=== PATIENT | female | born 1945 | race Caucasian/White ===

== ENCOUNTER 2016-10-25 19:59 | Inpatient (IN) | payer MEDICARE, OTHER ==
--- NOTE | 2016-10-25 20:34 | ED Physician Documentation ---
History of Present Illness - Stated complaint Stated Complaint: COUGH/DIZZINESS - Chief complaint Chief Complaint: General - History obtained from History obtained from: Patient - History of Present Illness Timing: How many days ago (2-3) Pain level now: 4 (chest pain, but distinctly related to coughing (only has pain when she coughs, and rapidly resolves)) Radiates to: no radiation Improved by: rest Worsened by: exertion - Additonal information Additional information: c/o 2-3 days of rhinorhea, dyspnea, productive cough. she has dizziness and chest pain when she coughs (and only when she coughs, resolves rapidly). taking dayquil and nyquil without relief of symptoms Review of Systems Constitutional: reports: Chills, Sweats. denies: Fever (did not take temperature at home) Eyes: reports: Reviewed and negative Ears: reports: Reviewed and negative Nose: reports: Reviewed and negative Throat: reports: Reviewed and negative Cardiac: reports: Chest pain / pressure (with coughing). denies: Palpitations, Pedal edema, Calf pain Respiratory: reports: Dyspnea, Cough GI: reports: Reviewed and negative : denies: Dysuria Skin: reports: Reviewed and negative Musculoskeletal: reports: Reviewed and negative Neurologic: reports: Generalized weakness. denies: Focal weakness, Numbness PD PAST MEDICAL HISTORY - Past Medical History Cardiovascular: None Respiratory: CPAP use Neuro: None Endocrine/Autoimmune: None GI: None INJECTION PRESS OPERATOR: None : None HEENT: None Psych: None Musculoskeletal: None Derm: None - Past Surgical History Past Surgical History: Yes General: Appendectomy /INJECTION PRESS OPERATOR: section HEENT: Tonsil/Adenoidectomy - Present Medications Home Medications: Ambulatory Orders Medication Instructions Recorded Confirmed Ergocalciferol [Vitamin D2] 50,000 unit PO ONCE 10/17/15 10/17/15 Ferrous Sulfate [Iron Supplement] 325 mg PO 10/17/15 Multivitamin [Multivitamins] 1 each PO DAILY 10/17/15 10/17/15 - Allergies Allergies/Adverse Reactions: Allergies Allergy/AdvReac Type Severity Reaction Status Date / Time No Known Drug Allergies Allergy Verified 10/25/16 20:07 - Social History Does the pt smoke?: No Smoking Status: Never smoker Does the pt drink ETOH?: No Does the pt have substance abuse?: No - Immunizations Immunizations are current?: Yes - POLST Patient has POLST: No PD ED PE NORMAL - Vitals Vital signs reviewed: Yes - General General: Alert and oriented X 3, No acute distress, Well developed/nourished - HEENT HEENT: Moist mucous membranes - Neck Neck: Supple, no meningeal sign - Cardiac Cardiac: RRR, Other (2/6 FIGUEROA cardiac base) - Respiratory Respiratory: No respiratory distress, Other (decreased breath sounds left base without wheezes, rales, rhonchi) - Abdomen Abdomen: Soft, Non tender - Derm Derm: Normal color, Warm and dry - Extremities Extremities: No edema - Neuro Neuro: Alert and oriented X 3 Results - Vitals Vitals: Vital Signs - 24 hr 10/25/16 10/25/16 20:03 21:55 Temperature 37.3 C Heart Rate 96 87 Respiratory 20 20 Rate Blood Pressure 140/69 H 126/57 L O2 Saturation 93 92 Oxygen O2 Source Nasal cannula Oxygen Flow Rate 3 - Labs Labs: Laboratory Tests 10/25/16 10/25/16 10/25/16 20:57 20:57 20:57 WBC 9.3 RBC 2.83 L Hgb 9.9 L Hct 29.1 L MCV 102.7 H MCH 34.9 H MCHC 33.9 RDW 13.2 Plt Count 163 MPV 9.3 Neut # 7.3 H Lymph # 0.9 L [place] # 0.9 Eos # 0.0 Baso # 0.1 Absolute Nucleated RBC 0.00 Nucleated RBCs 0.0 Sodium 134 L Potassium 4.5 Chloride 104 Carbon Dioxide 24 Anion Gap 6.0 BUN 18 Creatinine 0.9 Estimated GFR (MDRD) 62 L Glucose 127 H Calcium 8.8 Troponin I < 0.04 - Rads (name of study) chest xray Radiology: Prelim report reviewed, See rad report PD MEDICAL DECISION MAKING - ED course Complexity details: reviewed results, re-evaluated patient, considered differential, d/w patient, d/w family ED course: pneumonia on cxr with reassuring blood tests but persistent hypoxia (upper 80s pulse ox on room air with no pulmonary history; improves to 93-94% with supplemental oxygen, but subsequent to duoneb, she reports no subjective improvement, and when oxygen is removed, she rapidly returns to 88% pulse oxygenation with good correlating pleth). Departure - Departure Disposition: 66 [facility] DC/Xfer Clinical Impression: Pneumonia Qualifiers: Pneumonia type: due to unspecified organism Laterality: left Lung location: lower lobe of lung Qualified Code(s): J18.1 - Lobar pneumonia, unspecified organism Condition: Good Discharge Date/Time: 10/25/16 23:10
[2016-10-25] MEDS ORDERED: IPRATROPIUM/ALBUTEROL 3 ML NEB INH STA (20:49)
[2016-10-25 21:04] LABS: BASOPHILS # (AUTO) 0.1 10^3/uL (0.0-0.1); BASOPHILS % (AUTO) 0.5 %; EOSINOPHILS % (AUTO) 0.2 %; HCT - HEMATOCRIT 29.1 % (37.0-47.0); HGB - HEMOGLOBIN 9.9 g/dL (12.0-16.0); LYMPHOCYTES # (AUTO) 0.9 10^3/uL (1.5-3.5); MEAN CORPUSCULAR HEMOGLOBIN 34.9 pg (27.0-31.0); MEAN CORPUSCULAR HGB CONC 33.9 g/dL (32.0-36.0); MEAN CORPUSCULAR VOLUME 102.7 fL (81.0-99.0); MEAN PLATELET VOLUME 9.3 fL (7.9-10.8); MONOCYTES # (AUTO) 0.9 10^3/uL (0.0-1.0); MONOCYTES % (AUTO) 9.9 %; NEUTROPHILS # (AUTO) 7.3 10^3/uL (1.5-6.6); NEUTROPHILS % (AUTO) 79.4 %; RED BLOOD COUNT 2.83 10^6/uL (4.20-5.40); RED CELL DISTRIBUTION WIDTH 13.2 % (12.0-15.0); UNCORRECTED WHITE BLOOD COUNT 9.3 x10^3/uL; WHITE BLOOD COUNT 9.3 x10^3/uL (4.8-10.8)
[2016-10-25 21:13] LABS: CALCIUM 8.8 mg/dL (8.5-10.3); CREATININE 0.9 mg/dL (0.4-1.0); POTASSIUM 4.5 mmol/L (3.5-5.0)
--- NOTE | 2016-10-25 21:23 | XRAY Preliminary Report ---
Exam: XR Chest 2 View PA/LAT IMPRESSION: Left lower lobe airspace disease. [facility] SITE ID: [id number]
--- NOTE | 2016-10-25 21:26 | XRAY Report ---
EXAM: CHEST RADIOGRAPHY EXAM DATE: 10/25/2016 09:11 PM. CLINICAL HISTORY: Cough, hypoxia. COMPARISON: None. TECHNIQUE: 2 views. FINDINGS: Lungs/Pleura: Focal opacity in the left lung base. No pleural effusion or pneumothorax. Mediastinum: Heart and mediastinal contours are unremarkable. Other: None. IMPRESSION: Left lower lobe airspace disease. [facility] Referring Provider Line: [phone] SITE ID: [id number]
[2016-10-25] MEDS ORDERED: IPRATROPIUM/ALBUTEROL 3 ML NEB INH ONE (21:58)
[2016-10-25] MEDS ORDERED: cefTRIAXone 1 GM VIAL ONE (22:43)
[2016-10-25] MEDS ORDERED: cefTRIAXone 1 GM in SODIUM CHLORIDE 0.9% MINIBAG 100 ML IV STA (22:43)
[2016-10-25] MEDS ORDERED: AZITHROMYCIN INJ 500 MG in SODIUM CHLORIDE 0.9% 250 ML IV STA (22:43)
[2016-10-25] MEDS ORDERED: SODIUM CHLORIDE FLUSH 0.9% 10 ML SYRINGE IVP PRN (22:44)
[2016-10-25] MEDS ORDERED: HYDROcod/ACETAM 5/325 MG TABLET PO PRN (22:44)
[2016-10-25] MEDS ORDERED: ZOLPIDEM 5 MG TABLET PO PRN (22:44)
[2016-10-25] MEDS ORDERED: LEVALBUTEROL 1.25 MG INH PRN (22:46)
[2016-10-25] MEDS: SODIUM CHLORIDE 0.9% 1,000 ML IV SCH (23:43)
[2016-10-26 06:26] LABS: IMMATURE RETIC FRACTION 0.49; RED BLOOD COUNT 2.68 10^6/uL (4.20-5.40)
[2016-10-26] MEDS: SODIUM CHLORIDE FLUSH 0.9% 10 ML SYRINGE IVP SCH ×3 (06:28→21:16)
[2016-10-26 06:53] LABS: FERRITIN 712.2 ng/mL (11.0-306.8)
[2016-10-26] MEDS ORDERED: CYANOCOBALAMIN 1,000 MCG/ML VIAL IM ONE (07:00)
[2016-10-26 07:13] LABS: CALCIUM 8.4 mg/dL (8.5-10.3); CREATININE 0.8 mg/dL (0.4-1.0)
[2016-10-26] MEDS ORDERED: IRON SUCROSE 200 MG in SODIUM CHLORIDE 0.9% 100ML 100 ML IV ONE (08:00)
[2016-10-26] MEDS: POLYETHYLENE GLYCOL 3350 17 GM PACKET PO SCH (08:48)
[2016-10-26] MEDS: SACCHAROMYCES BOULARDII 250 MG CAPSULE PO SCH ×2 (08:52→16:01)
[2016-10-26] MEDS: AZITHROMYCIN INJ 500 MG in SODIUM CHLORIDE 0.9% 250 ML IV SCH (10:34)
[2016-10-26] MEDS: cefTRIAXone 2 GM in SODIUM CHLORIDE 0.9% MINIBAG 100 ML IV SCH (11:05)
[2016-10-26] MEDS: guaiFENesin/DEXTROMETHORPHAN 10 ML UDC PO PRN (11:13)
--- NOTE | 2016-10-26 11:42 | HISTORY & PHYSICAL EXAMINATION ---
DATE OF ADMISSION: 10/25/2016 PRIMARY CARE PROVIDER: [facility]. ADMITTING PROVIDER: Winter Garsia MD. CHIEF COMPLAINT: Coughing spasms with weakness and shortness of breath. She is a 71-year-old female who lives in her own home with her . She is disabled because of ch ronic lumbar back pain and has intermittent lumbar epidural steroid injections. She also has kyphosis , scoliosis, osteoporosis, and vertebral compression fractures. She says that this is her main disabi lity, pain and skeletal problems. She has a lift chair at home to get up and out. Also has a wheelcha ir, and uses a chair to get up her stairs at home. She lives with her and disabled son. 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 She has had intermittent alopecia, loss of hair, of eyebrows, loss of body hair except for her "toes." She has seen numerous dermatologists in her life, and most recently the middle school combination teacher put her on dapsone. Her has chronic obstructive pulmonary disease and he recently became sick with pneumonia abou t 2 weeks ago. About a week and a half ago she noted that she started having copious runny nose, a ti ckle in the throat, and then a spasmodic cough. Over the last 3 to 4 days she has developed increasin g weakness, fatigue. She has no appetite. She has had intermittent rigors and hot and cold flashes. S he is just miserable with the fatigue and lack of energy. The coughing spasms are so severe they take her breath away. She actually was not planning on coming in to the emergency room but her vinod arias got alarmed because she is just so tired. Last night was the final straw where she slept uprigh t downstairs all night long because she could not lay down with the cough. She was seen in the emergency room by Dr. Aragon and her temperature is 37.3. With coughing spasms marcos russo desaturates into the mid 80's on room air. She is requiring 2 liters of oxygen to maintain her O2 s aturation at 93 to 94%. On physical exam she does have diminished breath sounds in the left lower lobe. Her white cell count is normal. She is anemic to 9.9 with an MCV of 102, and her imaging studies with a chest x-ray showed her to have a left lower lobe pneumonia. PAST MEDICAL HISTORY 1. Morbid obesity with subsequent gastric bypass surgery with a Debo-en-Y, has resulted in 125 pound weight loss. Complications of this have been low vitamin D absorption with subsequent severe osteopor osis. As well as vitamin malabsorption of iron and B12 with chronic anemia. 2. Kyphosis, scoliosis. 3. Mild obstructive sleep apnea for which she has been on CPAP in the past. 4. G6, P3. She has a bicornuate uterus. Has lost 3 pregnancies. The 3 full term pregnancies resulted in . 5. Unknown type of skin disease and alopecia as above. ALLERGIES: NO KNOWN DRUG ALLERGIES. MEDICATIONS: 1. Ferrous sulfate 325 mg p.o. daily. 2. Multivitamin 1 p.o. daily. 3. Vitamin D 50,000 once a week. SOCIAL HISTORY: She was born and raised in [place]. Met her when he was in the [employer] and sh e was going to [place]. They have 3 children. He is retired [employer] and they have lived all over [place] because of his job. Came back to [facility] in 1968 and have lived here permanently. She smok ed starting at the age of 18 and quit around 1974 and was up to 1-1/2 packs per day. She has no histo ry of alcohol abuse and is adamant about no recreational substance abuse. She currently lives in her own home with her and her disabled son. He had developmental delay since . He works at [employer] doing light maintenance and yard work. is retired [employer]. FAMILY HISTORY: Mom around 54 or 55 of multiple strokes. Dad in his mid 70's of lung cancer . Two brothers have diabetes. Sister is healthy. Of her 3 children the 1 son is developmentally delay ed. Her other 2 sons are healthy. One son lives in [place] and the other one lives in [facility]. REVIEW OF SYSTEMS: She has had recent change in appetite, positive complaints of hot flashes and nigh t sweats, but no unexpected weight changes. ENT: Denies glaucoma or cataracts. She has no problems with swallowing. No problems with vision or de afness. PULMONARY: Usually has absolutely no lung problems. The cough is new, the shortness of breath and swe ats are new. CARDIAC: Denies orthopnea, edema, palpitations. She is having intermittent chest pain that seems to b e musculoskeletal and associated with coughing. It goes away when the coughing goes away. It is bilat eral, along the costochondral junctions. GI: Has no problems with diarrhea or abdominal pain. Noticeable lack of appetite and an already bad a ppetite in the past week. : Denies urgency, frequency, dysuria, hematuria, flank pain. MUSCULO: Positive as above for chronic back pain. No new complaints. SKIN: Flat, round, discoid lesions that are nonpalpable and more of a discoloration of her skin that has been plaguing her since the age of 18. Alopecia that is partial. Partial loss of eyebrows, comple te loss of arm hair, leg hair, body hair except for her toes. PSYCH: Denies depression, anxiety, hallucinations. [employer] SALES REPRESENTATIVE: Denies syncope, seizures, loss of consciousness, memory loss. REVIEW OF SYSTEMS: On review of systems she is seen in the emergency room with her at the bed side. Temperature is 37.3, pulse is 93, blood pressure 126/54, respirations 18, 93% on 3 liters. She has re ceived a nebulizer treatment in the emergency department and ceftriaxone and Zithromax have been orde red, but not given yet. She is an alert, oriented, but noticeably fatigued, moderately overweight mid dle aged female who looks older than her stated age. She is comfortable at rest, but with talking to me starts gasping for air and getting mildly tachypneic. HEAD AND NECK EXAM: Shows her to have generalized intermittent alopecia, loss of lateral eyebrows. Pu pils are reactive. Sclerae nonicteric. Oral mucosa pale, dry. No facial asymmetry and speech is myrna l and intact. Neck is supple without goiter, adenopathy or bruits. LUNGS: Lungs have coarse tubular breath sounds in the left mid and left lower lung rothman, but no cras ckles, no wheezing. There is increased tachypnea when she starts talking to me. But no use of accesso ry muscles. PMI normally placed with an occasional tachycardic regular rate and rhythm without murmur s, rubs, or gallops. ABDOMEN: Obese, soft, nontender, with evidence of her old Debo en Y bypass surgery. Hypoactive bowel sounds, nontender, no rebound or guarding. EXTREMITIES AND SKIN: Quite hot to touch. This is in spite of no temperature. Forehead is cool, but h er arms, trunk, and legs are quite, quite warm. Also covering her forearms and distal legs are flat, hypermelanotic areas reddish, pinkish color. Nonblanching and nonpalpable. Nonflaking. The joints in and of themselves have no effusions at the shoulders, elbows, wrist, knees, ankles, or fingers or toe s. NEUROLOGIC: She is alert and oriented to person, place, and time. She is really weak. It is more of a generalized weakness and she says she is just so tired. But no focal deficits and she can use her nicholas nds to gesticulate, make herself comfortable in the bed, she can lift her legs off the bed for me. No tremors. White cell count is 9.3, hemoglobin 9.9, hematocrit 29, MCV 102. Sodium 134, potassium 4.5, normal an ion gap, BUN 18, creatinine 0.9, lactic acid 1.3, troponin less than 0.04. EKG: A sinus rhythm. Normal axis, normal R-wave progression, no acute STT wave changes. Chest x-ray has a left lower lobe infiltrate. ASSESSMENT AND PLAN: 1. Community acquired pneumonia of the left lower lobe in this middle aged female. Argument to be mad e for mild immunocompromised state with the use of dapsone. However, she is a remote tobacco smoker. She has not been in an institution or hospitalized recently or treated with antibiotics. As such, she will be placed on ceftriaxone and Rocephin. Blood cultures will be done, as well as sputum cultures if they can be induced. Plan is for inpatient stay for greater than 2 midnights. 2. Hypoxia. I carefully explained to her that she may need oxygen in the outpatient setting. But it i s not a permanent use. 3. Macrocytic anemia in a patient who had gastric bypass surgery. Again, most likely cause is malabso rption of both iron and B12. She does not list B12 sublingual or B12 injections on her medication lis t. Will check B12, ferritin, iron, zinc levels. If these are low, will make sure she needs to be supp lemented in the outpatient setting. 4. Possible discoid lupus diagnosis. The patient is unsure. Dapsone is not listed on the medication l ist per the emergency room and I obtained this from her history. At this time hold off on the dapsone . 5. FULL CODE STATUS. IN THE EVENT OF A CARDIOPULMONARY ARREST SHE DOES WANT TO BE RESUSCITATED AND BE INTUBATED. HOWEVER, IF THE EFFORT LOOKS LIKE IT IS GOING TO BE FUTILE, SHE WANTS US TO CALL IT AND S HE DOES NOT WANT TO REMAIN ON LIFE SUPPORT. 6. DVT prophylaxis will be Lovenox. JOB #: [id number] EXT JOB #:[id number]
[2016-10-26] MEDS: ACETAMINOPHEN 325 MG TABLET PO PRN ×2 (13:06→16:01)
--- NOTE | 2016-10-26 14:26 | PROVIDER PROGRESS NOTE ---
Subjective - Prog Note Date Prog Note Date: 10/26/16 Prog Note Time: 14:24 - Subjective Pt reports feeling: Improved Subjective: Pateint reports she is still feeling ill but overall achy and still has some sweats/chills. Was up to chair with breakfast, exercising her arms/legs. She denies nausea. Her SOB persists, worse when havign a coughing spell. She denies chest pain. Has strong coarse hacky cough, some sputum. Reports mobility at baseline. Current Medications - Current Medications Current Medications: Active Medications Acetaminophen (Tylenol) 650 mg PO Q4HR PRN PRN Reason: Pain 1 to 4 Last Admin: 10/26/16 13:06 Dose: 650 mg Acetaminophen/Hydrocodone Bitart ([place] 5/325) 1 tab PO Q4HR PRN PRN Reason: Pain 5 to 7 Guaifenesin (Robitussin Dm) 10 ml PO Q6HR PRN PRN Reason: Cough Last Admin: 10/26/16 11:13 Dose: 10 ml Sodium Chloride (Normal Saline 0.9%) 1,000 mls @ 100 mls/hr IV .Q10H [facility] Stop: 10/26/16 18:59 Last Admin: 10/25/16 23:43 Dose: 100 mls/hr Azithromycin 500 mg/ Sodium (Chloride) 250 mls @ 250 mls/hr IV DAILY [facility] Last Admin: 10/26/16 10:34 Dose: 250 mls/hr Ceftriaxone Sodium 2 gm/ (Sodium Chloride) 100 mls @ 200 mls/hr IV Q24H [facility] Last Admin: 10/26/16 11:05 Dose: 200 mls/hr Levalbuterol HCl (Xopenex) 1.25 mg INH Q4HR PRN PRN Reason: Wheezing Polyethylene Glycol (Miralax) 17 gm PO DAILY [facility] Last Admin: 10/26/16 08:48 Dose: Not Given Saccharomyces Boulardii (Florastor) 250 mg PO BIDWM [facility] Last Admin: 10/26/16 08:52 Dose: 250 mg Sodium Chloride (Normal Saline Flush 0.9%) 10 ml IVP PRN PRN PRN Reason: NEEDED PER PROVIDER ORDERS Sodium Chloride (Normal Saline Flush 0.9%) 10 ml IVP Q8HR [facility] Last Admin: 10/26/16 14:06 Dose: Not Given Zolpidem Tartrate (Ambien) 5 mg PO QPM PRN PRN Reason: Insomnia Ferrous Sulfate [Iron Supplement] 325 mg PO Q7D 10/17/15 Calcium Carbonate [Tums (Calcium Carbonate 500mg)] 500 mg PO DAILY 10/26/16 Cholecalciferol (Vitamin D3) [Vitamin D] 2,000 unit PO DAILY 10/26/16 Cyanocobalamin (Vitamin B-12) [Vitamin B-12 (500 mcg sublingual)] 250 mcg PO DAILY 10/26/16 Dapsone 50 mg PO BID 10/26/16 Pnv95/Ferrous Fumarate/FA [ Tablet] 1 each PO DAILY 10/26/16 Objective - Vital Signs/Intake & Output Reviewed Vital Signs: Yes Vital Signs: Vital Signs x48h Temp Pulse Pulse Resp BP Pulse Ox 10/26/16 13:32 37.5 C 85 19 149/70 H 93 10/26/16 08:10 102 H 20 Intake & Output: Intake & Output 10/23/16 10/24/16 10/25/16 10/26/16 23:59 23:59 23:59 23:59 Intake Total 1618 Balance 1618 - Objective General Appearance: positive: No acute distress, Alert Eyes Bilateral: positive: Normal inspection, PERRL ENT: positive: No signs of dehydration Neck: positive: No JVD Respiratory: positive: Chest non-tender, No respiratory distress, Breath sounds nml (coarse LLL posterior expiratory BS and coarse cough,diminished bases. INcreased rate with exertion or conversation.) Cardiovascular: positive: Regular rate & rhythm, Tachycardia Peripheral Pulses: 2+ Radial (R), 2+ Radial (L) Abdomen: positive: Non-tender, Nml bowel sounds (hypoactive), No distention Back: positive: Nml inspection Skin: positive: Other (Pale with evidence of discoid lupus with annular plaques that are only slightly darker pigmenation, no erythem aor scaling. Skin hot and clammy on the back.) Extremities: positive: Non-tender, Pedal edema (+2). negative: Calf tenderness , Joint swelling Neurologic/Psychiatric: positive: Oriented x3, Weakness (in the LEs but she is able to sit up in bed independently) - Lab Results Fish Bones: 10/25/16 20:57 10/26/16 05:55 Other Labs: Lab Results x24hrs 10/26/16 10/26/16 10/26/16 Range/Units 05:55 05:55 05:55 RBC (4.20-5.40) 10^6/uL Reticulocyte % (Auto) (0.5-2.3) % Absolute Retic (0.020-0.110) 10^6/uL Sodium (135-145) mmol/L Potassium (3.5-5.0) mmol/L Chloride (101-111) mmol/L Carbon Dioxide (21-32) mmol/L Anion Gap (6-13) BUN (6-20) mg/dL Creatinine (0.4-1.0) mg/dL Estimated GFR (MDRD) (>89) Glucose (70-100) mg/dL Lactic Acid (0.5-2.2) mmol/L Calcium (8.5-10.3) mg/dL Iron (28-170) ug/dL TIBC (250-450) ug/dL % Saturation (20-50) % Transferrin (192-382) mg/dL Ferritin 712.2 H (11.0-306.8) ng/mL Lactate Dehydrogenase 161 (91-225) IU/L Vitamin B12 645 (180-914) pg/mL Folate 23.24 (5.90 - >24.8) ng/mL 10/26/16 10/26/16 10/25/16 Range/Units 05:55 05:55 22:49 RBC 2.68 L (4.20-5.40) 10^6/uL Reticulocyte % (Auto) 3.22 H (0.5-2.3) % Absolute Retic 0.086 (0.020-0.110) 10^6/uL Sodium 135 (135-145) mmol/L Potassium 4.0 (3.5-5.0) mmol/L Chloride 105 (101-111) mmol/L Carbon Dioxide 23 (21-32) mmol/L Anion Gap 7.0 (6-13) BUN 12 (6-20) mg/dL Creatinine 0.8 (0.4-1.0) mg/dL Estimated GFR (MDRD) 71 L (>89) Glucose 118 H (70-100) mg/dL Lactic Acid 1.3 (0.5-2.2) mmol/L Calcium 8.4 L (8.5-10.3) mg/dL Iron 8 L (28-170) ug/dL TIBC 168 L (250-450) ug/dL % Saturation 5 L (20-50) % Transferrin 120 L (192-382) mg/dL Ferritin (11.0-306.8) ng/mL Lactate Dehydrogenase (91-225) IU/L Vitamin B12 (180-914) pg/mL Folate (5.90 - >24.8) ng/mL Assessment/Plan - Problem List (1) CAP (community acquired pneumonia) Impression: Possibly mild immunocompromised state from dapsone. Recent exposure with sick contacts at family gathering. No hx of underlying lung disease. +cough, congetsion, SOB, fatigue and poor appetite. CXR with LLL infiltrate and coarse breath sounds. -Rocephin and Azithromycin -Xopenex prn -Robitussin prn -Follow-up BC results -Follow-up sputum cx results (2) Hypoxia Impression: No hx of hypoxia or underlying lung disease. Etiology: CAP. mid 80s on RA on arrival. Now 93% on 3l nc. -Duonebs rtQID prn -Xopenex neb prn -Supplemental O2 prn (3) Macrocytic anemia Impression: Hx of gastric bypass which could cause malabsorption. Noted to have very low iron but labs reveal a more anemia of chronic disease type pattern. B12 and folate normal. Given B12 IM injection x1. Given iron infusion x1. Retic % high but absolute retic normal - will work up for hemolytic anemia -LDH, Haptoglobin, and Bilirubin -RD eval and treat -Increase PO iron to daily as outpatient, if no improvement may benefit from outpt iron infusions on regular basis (4) Chronic pain Impression: Hx of chronic pain due to scoliosis and kyphosis. No opioids at home. -Encourage activity while here to prevent stiffness -Ice or kpad as needed
[2016-10-26] MEDS: IPRATROPIUM/ALBUTEROL 3 ML NEB INH PRN ×2 (15:37→19:40)
[2016-10-26 16:01] LABS: BILIRUBIN,DIRECT 0.2 mg/dL (0.1-0.5); BILIRUBIN,INDIRECT 0.8 mg/dL
[2016-10-26] MEDS: SODIUM CHLORIDE 0.9% 1,000 ML IV SCH (20:05)
[2016-10-26] MEDS: CALCIUM CARBONATE CHEW 500 MG TABLET PO PRN (21:56)
[2016-10-27] MEDS: BENZOCAINE/MENTHOL LOZENGE MM PRN ×2 (00:02→02:42)
[2016-10-27] MEDS: guaiFENesin/DEXTROMETHORPHAN 10 ML UDC PO PRN (00:02)
[2016-10-27] MEDS: CALCIUM CARBONATE CHEW 500 MG TABLET PO PRN ×4 (02:42→20:11)
[2016-10-27 05:56] LABS: CALCIUM 8.7 mg/dL (8.5-10.3); CREATININE 0.7 mg/dL (0.4-1.0); POTASSIUM 4.1 mmol/L (3.5-5.0)
[2016-10-27] MEDS: SODIUM CHLORIDE FLUSH 0.9% 10 ML SYRINGE IVP SCH ×3 (06:44→20:07)
--- NOTE | 2016-10-27 08:31 | PROVIDER PROGRESS NOTE ---
Assessment/Plan - Problem List (1) CAP (community acquired pneumonia) Assessment/Plan: acute. continue with rocephin and azithromycin. stop if sputum culture has no growth. patient remains afebrile. continue with RT treatments and monitoring of pulse oxygenation. monitor WBC (2) Intestinal malabsorption following gastrectomy Assessment/Plan: acute on chronic. continue to monitor electrolytes. Banana bad given IV since patient is having a hard time with absorption. will get a vitamin D level, B12, lipid and following CBC. magnesium at 1.9 (3) Macrocytic anemia Assessment/Plan: acute on chronic with iron deficiency secondary to gastric bypass surgery with malabsorption - continue to monitor CBC. add ferrous sulfate to daily meds. venofer IV given. B12 WNL. monitor for bleeding. gluten free diet (4) Chronic low back pain with bilateral sciatica Qualifiers: Qualified Code(s): M54.42 - Lumbago with sciatica, left side; M54.41 - Lumbago with sciatica, right side; G89.29 - Other chronic pain Assessment/Plan: chronic. continue to encourage ambulation and reduce inflammation. continue with hydrocodone as needed for pain and tylenol (5) Obesity (BMI 30.0-34.9) Assessment/Plan: chronic, patient to continue to eat a gluten free gastric bypass diet. encourage ambulation and monitor caloric intake - Current Meds Current Meds: Current Medications Generic Name Dose Route Start Last Admin Trade Name Freq PRN Reason Stop Dose Admin Acetaminophen 650 mg 10/25/16 22:44 10/26/16 16:01 Tylenol PO 650 mg Q4HR PRN Administration Pain 1 to 4 Albuterol/Ipratropium 3 ml 10/26/16 14:39 10/26/16 19:40 Duoneb INH 3 ml RTQID PRN Administration Shortness of Air/Wheezing Calcium Carbonate/Glycine 500 mg 10/26/16 21:39 10/27/16 06:44 Tums PO 500 mg PRN PRN Administration Heartburn Guaifenesin 10 ml 10/26/16 11:02 10/27/16 00:02 Robitussin Dm PO 10 ml Q6HR PRN Administration Cough Azithromycin 500 mg/ Sodium 250 mls @ 250 mls/hr 10/26/16 09:00 10/26/16 10:34 Chloride IV 250 mls/hr DAILY ANGELI Administration Ceftriaxone Sodium 2 gm/ 100 mls @ 200 mls/hr 10/26/16 10:00 10/26/16 11:05 Sodium Chloride IV 200 mls/hr Q24H ANGELI Administration Polyethylene Glycol 17 gm 10/26/16 09:00 10/26/16 08:48 Miralax PO Not Given DAILY ANGELI Saccharomyces Boulardii 250 mg 10/26/16 08:00 10/26/16 16:01 Florastor PO 250 mg BIDWM ANGELI Administration Sodium Chloride 10 ml 10/26/16 06:00 10/27/16 06:44 Normal Saline Flush 0.9% IVP 10 ml Q8HR ANGELI Administration Throat Lozenges 1 lozenge 10/26/16 23:38 10/27/16 02:42 Cepacol MM 1 lozenge Q2HR PRN Administration Throat pain - Lab Result Lab results reviewed: Yes Fish Bone Diagrams: 10/28/16 07:40 10/28/16 06:30 Other Lab Results: Abnormal Lab Results 10/25/16 10/25/16 10/26/16 20:57 20:57 05:55 RBC 2.83 10^6/uL L 10^6/uL (4.20-5.40) Hgb 9.9 g/dL L g/dL (12.0-16.0) Hct 29.1 % L % (37.0-47.0) MCV 102.7 fL H fL (81.0-99.0) MCH 34.9 pg H pg (27.0-31.0) Reticulocyte % (Auto) Neut # 7.3 10^3/uL H 10^3/uL (1.5-6.6) Lymph # 0.9 10^3/uL L 10^3/uL (1.5-3.5) Sodium 134 mmol/L L mmol/L (135-145) Estimated GFR (MDRD) 62 L 71 L (>89) (>89) Glucose 127 mg/dL H mg/dL 118 mg/dL H mg/dL (70-100) (70-100) Calcium 8.4 mg/dL L mg/dL (8.5-10.3) Iron 8 ug/dL L ug/dL (28-170) TIBC 168 ug/dL L ug/dL (250-450) % Saturation 5 % L % (20-50) Transferrin 120 mg/dL L mg/dL (192-382) Ferritin 10/26/16 10/26/16 10/27/16 05:55 05:55 05:16 RBC 2.68 10^6/uL L 10^6/uL (4.20-5.40) Hgb Hct MCV MCH Reticulocyte % (Auto) 3.22 % H % (0.5-2.3) Neut # Lymph # Sodium Estimated GFR (MDRD) 83 L (>89) Glucose 110 mg/dL H mg/dL (70-100) Calcium Iron TIBC % Saturation Transferrin Ferritin 712.2 ng/mL H ng/mL (11.0-306.8) - EKG Results EKG Interpreted Independently: No - Additional Planning Condition/Complexity: Improved My Orders: My Active Orders 10/27/16 08:30 CBC - COMP BLD CT W/AUTO DIFF [HEME] Stat 10/27/16 09:00 Cholecalciferol [Vitamin D3] 5,000 unit PO BID Consult/Specialty: OT, PT Plan Discussed with:: Patient, Family, Case Management Time Spent: 15-30 minutes Additional Planning Notes: plan to discharge patient home tomorrow. She will need one more night due to multiple co morbid conditions. She is high risk for worsening and will need addtional medications IV and is at risk for medication toxicity. Subjective - Subjective Patient Reports: Feeling Better, Resting Comfortably, No Complaints Nursing Reports: No Complaints (bronchial cough and fatigue) Objective Vital Signs: Vital Signs - 24 hr 10/26/16 10/26/16 10/26/16 13:32 15:40 15:56 Temperature 37.5 C 36.5 C Heart Rate 76 Heart Rate [ 85 76 Brachial] Respiratory 19 18 16 Rate Blood Pressure 149/70 H 104/64 [Right Brachial artery] O2 Saturation 93 94 10/26/16 10/26/16 10/27/16 19:40 23:35 07:55 Temperature 326.9 C H 37.1 C Heart Rate 77 Heart Rate [ 88 75 Brachial] Respiratory 16 16 16 Rate Blood Pressure 143/74 H 118/71 [Right Brachial artery] O2 Saturation 95 92 Oxygen O2 Source Room air I&O (Last 24 Hrs): Intake and Output Totals x24h 10/25/16 10/26/16 10/27/16 23:59 23:59 23:59 Intake Total 2168 250 Balance 2168 250 General: Alert, Oriented x3, Cooperative HEENT: Atraumatic Neck: Supple, No JVD, No thyromegaly Neuro: Alert, CN 2-12 Grossly Intact, Oriented Times 3 Cardiovascular: Regular rate, Normal S1, Normal S2 Respiratory: No respiratory distress, Other (bronchial diffuse) Abdomen: Normal bowel sounds, Soft, No tenderness, No masses Extremities: No clubbing, No cyanosis, No edema, No tenderness/swelling Skin: No rashes, No breakdown, No significant lesion Comments/Notes: multiple spots and patches non itching with erythema to upper and lower extremities. scaling on neck - Results Results: Laboratory Results WBC 9.3 x10^3/uL (4.8-10.8) 10/25/16 20:57 RBC 2.68 10^6/uL (4.20-5.40) L 10/26/16 05:55 Hgb 9.9 g/dL (12.0-16.0) L 10/25/16 20:57 Hct 29.1 % (37.0-47.0) L 10/25/16 20:57 MCV 102.7 fL (81.0-99.0) H 10/25/16 20:57 MCH 34.9 pg (27.0-31.0) H 10/25/16 20:57 MCHC 33.9 g/dL (32.0-36.0) 10/25/16 20:57 RDW 13.2 % (12.0-15.0) 10/25/16 20:57 Plt Count 163 10^3/uL (130-450) 10/25/16 20:57 MPV 9.3 fL (7.9-10.8) 10/25/16 20:57 Reticulocyte % (Auto) 3.22 % (0.5-2.3) H 10/26/16 05:55 Neut # 7.3 10^3/uL (1.5-6.6) H 10/25/16 20:57 Lymph # 0.9 10^3/uL (1.5-3.5) L 10/25/16 20:57 [place] # 0.9 10^3/uL (0.0-1.0) 10/25/16 20:57 Eos # 0.0 10^3/uL (0.0-0.7) 10/25/16 20:57 Baso # 0.1 10^3/uL (0.0-0.1) 10/25/16 20:57 Absolute Nucleated RBC 0.00 x10^3/uL 10/25/16 20:57 Nucleated RBCs 0.0 /100WBC 10/25/16 20:57 Absolute Retic 0.086 10^6/uL (0.020-0.110) 10/26/16 05:55 Sodium 135 mmol/L (135-145) 10/27/16 05:16 Potassium 4.1 mmol/L (3.5-5.0) 10/27/16 05:16 Chloride 103 mmol/L (101-111) 10/27/16 05:16 Carbon Dioxide 24 mmol/L (21-32) 10/27/16 05:16 Anion Gap 8.0 (6-13) 10/27/16 05:16 BUN 11 mg/dL (6-20) 10/27/16 05:16 Creatinine 0.7 mg/dL (0.4-1.0) 10/27/16 05:16 Estimated GFR (MDRD) 83 (>89) L 10/27/16 05:16 Glucose 110 mg/dL (70-100) H 10/27/16 05:16 Lactic Acid 1.3 mmol/L (0.5-2.2) 10/25/16 22:49 Calcium 8.7 mg/dL (8.5-10.3) 10/27/16 05:16 Iron 8 ug/dL (28-170) L 10/26/16 05:55 TIBC 168 ug/dL (250-450) L 10/26/16 05:55 % Saturation 5 % (20-50) L 10/26/16 05:55 Transferrin 120 mg/dL (192-382) L 10/26/16 05:55 Ferritin 712.2 ng/mL (11.0-306.8) H 10/26/16 05:55 Total Bilirubin 1.0 mg/dL (0.2-1.0) 10/26/16 15:30 Direct Bilirubin 0.2 mg/dL (0.1-0.5) 10/26/16 15:30 Indirect Bilirubin 0.8 mg/dL 10/26/16 15:30 Lactate Dehydrogenase 201 IU/L (91-225) 10/26/16 15:30 Troponin I < 0.04 ng/mL (<0.49) 10/25/16 20:57 Vitamin B12 645 pg/mL (180-914) 10/26/16 05:55 25-OH Vitamin D Total 32 ng/mL (30-100) 10/26/16 05:55 Folate 23.24 ng/mL (5.90 - >24.8) 10/26/16 05:55
[2016-10-27] MEDS: SACCHAROMYCES BOULARDII 250 MG CAPSULE PO SCH ×2 (08:35→16:05)
[2016-10-27] MEDS: AZITHROMYCIN INJ 500 MG in SODIUM CHLORIDE 0.9% 250 ML IV SCH (08:35)
[2016-10-27] MEDS: POLYETHYLENE GLYCOL 3350 17 GM PACKET PO SCH (08:35)
[2016-10-27] MEDS: CHOLECALCIFEROL 5,000 UNIT CAPSULE PO SCH ×2 (08:41→20:07)
[2016-10-27 09:10] LABS: EOSINOPHILS % (AUTO) 0.3 %; HCT - HEMATOCRIT 26.6 % (37.0-47.0); MEAN CORPUSCULAR HGB CONC 33.6 g/dL (32.0-36.0); NEUTROPHILS # (AUTO) 7.3 10^3/uL (1.5-6.6); UNCORRECTED WHITE BLOOD COUNT 9.8 x10^3/uL; WHITE BLOOD COUNT 9.8 x10^3/uL (4.8-10.8)
[2016-10-27 09:12] LABS: BASOPHILS % (AUTO) 0.4 %; HGB - HEMOGLOBIN 8.9 g/dL (12.0-16.0); LYMPHOCYTES # (AUTO) 1.5 10^3/uL (1.5-3.5); MEAN CORPUSCULAR HEMOGLOBIN 34.2 pg (27.0-31.0); MEAN CORPUSCULAR VOLUME 101.8 fL (81.0-99.0); MEAN PLATELET VOLUME 10.1 fL (7.9-10.8); MONOCYTES % (AUTO) 10.5 %; NEUTROPHILS % (AUTO) 73.8 %; RED BLOOD COUNT 2.62 10^6/uL (4.20-5.40); RED CELL DISTRIBUTION WIDTH 13.2 % (12.0-15.0)
[2016-10-27] MEDS: IPRATROPIUM/ALBUTEROL 3 ML NEB INH PRN (09:15)
[2016-10-27] MEDS: cefTRIAXone 2 GM in SODIUM CHLORIDE 0.9% MINIBAG 100 ML IV SCH (09:45)
[2016-10-27 11:26] LABS: CHOL/HDL RATIO 2.3 (<4.4); CHOLESTEROL 110 mg/dL; HDL CHOLESTEROL 47 mg/dL; LDL/HDL RATIO 1.1 (<4.4); TRIGLYCERIDES 48 mg/dL; VLDL CHOLESTEROL 10 mg/dL
[2016-10-27] MEDS ORDERED: MAGNESIUM SULFATE 2 GRAM 50 ML IV ONE (13:47)
[2016-10-27] MEDS ORDERED: MULTIVITAMIN 10 ML, FOLIC ACID INJ 1 MG, THIAMINE INJ 100 MG, MAGNESIUM SULFATE 2 GM in... IV SCH ×5 (16:00)
[2016-10-27] MEDS: OMEGA-3 ACID ETHYL ESTERS 1 GM CAPSULE PO SCH (16:05)
[2016-10-27] MEDS: ZINC SULFATE 220 MG CAPSULE PO SCH (16:06)
[2016-10-27] MEDS: ACETAMINOPHEN 325 MG TABLET PO PRN (16:06)
[2016-10-27] MEDS: BENZONATATE 100 MG CAPSULE PO PRN ×2 (18:30→23:23)
[2016-10-28] MEDS: BENZOCAINE/MENTHOL LOZENGE MM PRN (00:38)
[2016-10-28] MEDS: SODIUM CHLORIDE FLUSH 0.9% 10 ML SYRINGE IVP SCH (05:13)
[2016-10-28 06:49] LABS: CALCIUM 8.8 mg/dL (8.5-10.3); CREATININE 0.7 mg/dL (0.4-1.0); POTASSIUM 4.1 mmol/L (3.5-5.0)
[2016-10-28 08:14] LABS: BASOPHILS % (AUTO) 0.8 %; EOSINOPHILS % (AUTO) 0.8 %; HCT - HEMATOCRIT 26.4 % (37.0-47.0); HGB - HEMOGLOBIN 9.1 g/dL (12.0-16.0); LYMPHOCYTES % (AUTO) 17.7 %; MEAN CORPUSCULAR HEMOGLOBIN 34.6 pg (27.0-31.0); MEAN CORPUSCULAR HGB CONC 34.3 g/dL (32.0-36.0); MEAN CORPUSCULAR VOLUME 100.7 fL (81.0-99.0); MEAN PLATELET VOLUME 9.6 fL (7.9-10.8); MONOCYTES % (AUTO) 10.4 %; NEUTROPHILS % (AUTO) 70.3 %; RED BLOOD COUNT 2.62 10^6/uL (4.20-5.40); RED CELL DISTRIBUTION WIDTH 13.3 % (12.0-15.0); UNCORRECTED WHITE BLOOD COUNT 7.8 x10^3/uL; WHITE BLOOD COUNT 7.8 x10^3/uL (4.8-10.8)
--- NOTE | 2016-10-28 08:19 | Discharge Plan ---
Discharge Plan Disposition: 01 Home, Self Care Condition: Good Prescriptions: [place]-3 Acid Ethyl Esters [Lovaza] 1 gm PO BID #60 capsule Magnesium Oxide [Mag Ox] 400 mg PO DAILYWM #30 tablet Benzonatate [Tessalon] 100 mg PO TID PRN #60 capsule PRN Reason: Cough Calcium Carbonate [Tums (Calcium Carbonate 500mg)] 500 mg PO PRN PRN #30 tablet PRN Reason: Heartburn Cholecalciferol [Vitamin D3] 5,000 unit PO BID #60 capsule Diet: Cardiac (gluten free and noninflammatory diet) Activity Restrictions: Activity as Tolerated Shower Restrictions: No Driving Restrictions: No Assistance Devices: Cane Weight Bearing: Full Weight Instruction Topics: Gastric Bypass Nutrition Guide, Iron Blood, Multivitamin with Minerals and Iron formulations oral solid dosage forms Additional Instructions or Follow Up instructions: Please followup with your primary care provider in 1-2 days of discharge. Please call [facility] in [facility] for an appointment. You need to continue to take home medications as prescribed. You have been given prescriptions for cough and you will need to stop taking the dapsone. Eat a gluten free diet and avoid dairy as well. Get sleep at night with at least 6-8 hours. Use a CPAP if you have sleep apnea Avoid alcohol late at night. Drink more water throughout the day. No sodas or refined sugar products. Get exercise daily. Walking is a great way to help your heart and feel better. Take a multivitamin with iron daily. Return to the ER if symptoms worsen or you have chest pain or shortness of breath. No Smoking: If you smoke, Please STOP! Call for help.
[2016-10-28 08:34] LABS: BAND NEUTROPHILS % (MANUAL) 4 %; LYMPHOCYTES % (MANUAL) 30 %; NEUTROPHILS % (MANUAL) 57 %; TOTAL CELLS COUNTED 100
[2016-10-28 08:35] LABS: NP AUTO DIFFERENTIAL? YES; NP MAN DIFFERENTIAL? NO; PLATELET ESTIMATE, MANUAL NORMAL (130-450,000) (NORMAL); PLATELET MORPHOLOGY NORMAL APPEARANCE (NORMAL)
[2016-10-28] MEDS: OMEGA-3 ACID ETHYL ESTERS 1 GM CAPSULE PO SCH (08:35)
--- NOTE | 2016-10-28 08:35 | DISCHARGE SUMMARY ---
"Discharge Summary Admit Date: 10/25/16 Discharge Date: 10/28/16 Discharging Provider: Itzel Triplett APRN Primary Care Provider: [facility] Code Status: Attempt Resuscitation Condition at Discharge: Good Discharge Disposition: 01 Home, Self Care Discharge Facility Name: [facility] - DIAGNOSES Admission Diagnoses: Community Acquired PNA Cough-nonproductive Acute skin rash possible autoimmune skin disorder Discharge Diagnoses with Status of Each Condition: Problem List (1) CAP (community acquired pneumonia) (2) Intestinal malabsorption following gastrectomy (3) Macrocytic anemia acute on chronic with iron deficiency secondary to gastric bypass surgery with malabsorption (4) Chronic low back pain with bilateral sciatica (5) Obesity (BMI 30.0-34.9) (6) Acute papular rash, generalized with possible reaction to drug Dapsone - HPI History of Present Illness: Patient is a 71 year old female with multiple co morbid conditions with c/o 2-3 days of rhinorhea, dyspnea, productive cough. she has dizziness and chest pain when she coughs (and only when she coughs, resolves rapidly). taking dayquil and nyquil without relief of symptoms. had gastric bypass 3 years ago and suffers from malabsorption of vitamins and other nutrients. Has no fever or chills but possible CAP pneumonia on xray while in the ER. Has a rash over body thought to be an autoimmune systemic response and was given Dapsone. Patient has been on this medication for 2 months already. Multiple lesions over the body. Admission for possible CAP pneumonia and generalized unspecified rash. - CONSULTS | PROCEDURES Consultations: none Procedures: none - HOSPITAL COURSE Hospital Course: Neri is a 71 year old female admitted to medical surgical for possible pneumonia and generalized rash over entire body. Patient had a gastric bypass surgery 3 years ago and suffers from anemia and other electrolyte imbalances from malabsorption and controlled with iron supplementattion and multivitamins. Patient had not been taking her ferrous sulfate daily and was found to be macrocytic and iron deficient anemia. She was admitted to inpatient with possible PNA. She also was complaining of generalized rash and taking dapsone per Dermatology. She stated that the medication had been making her feel worse over the last several days at home. She was treated with Rocephin and Azithromycin IV for possible pneumonia. Dapsone was stopped. She was treated with tessalon perles and robitussin for the cough and URI symptoms. She was given a gluten free diet bariatric. CBC and electrolytes monitored. She continued on medications for chronic pain in the back including hydrocodone and tylenol. She was given supplemental oxygen per RT PRN. Blood cultures and sputum cultures were negative and so the anitbiotics were stopped. The rash improved with stopping the Dapsone. She was found to have an iron level <6. She was given Venofer IV x 2 doses. She was given a banana bag and magnesium for electrolyte replacement. She was counseled on the lack of absorption with weight loss and bariatric surgery and given referral to a specialist in her living area. She was instructed to try to avoid foods that can cause GI upset such as gluten and dairy. The cough appears to be a reaction to the medication Dapsone along with the worsening anemia and pneumonitis. She was discharged home with prescriptions for magnesium, omega 3, iron and vitamin D. to take home in private vehicle. - ALLERGIES Allergies/Adverse Reactions: Allergies Allergy/AdvReac Type Severity Reaction Status Date / Time No Known Drug Allergies Allergy Verified 10/25/16 20:07 - MEDICATIONS Home Medications: Ambulatory Orders Medication Instructions Recorded Confirmed Ferrous Sulfate [Iron Supplement] 325 mg PO Q7D 10/17/15 10/26/16 Calcium Carbonate [Tums (Calcium 500 mg PO DAILY 10/26/16 10/26/16 Carbonate 500mg)] Cyanocobalamin (Vitamin B-12) 250 mcg PO DAILY 10/26/16 10/26/16 [Vitamin B-12 (500 mcg sublingual)] Pnv95/Ferrous Fumarate/FA 1 each PO DAILY 10/26/16 10/26/16 [ Tablet] Benzonatate [Tessalon] 100 mg PO TID PRN #60 capsule 10/28/16 Calcium Carbonate [Tums (Calcium 500 mg PO PRN PRN #30 tablet 10/28/16 Carbonate 500mg)] Cholecalciferol [Vitamin D3] 5,000 unit PO BID #60 capsule 10/28/16 Magnesium Oxide [Mag Ox] 400 mg PO DAILYWM #30 tablet 10/28/16 [place]-3 Acid Ethyl Esters [Lovaza] 1 gm PO BID #60 capsule 10/28/16 - PHYSICAL EXAM AT DISCHARGE General Appearance: positive: No acute distress, Alert Eyes Bilateral: positive: Normal inspection, PERRL ENT: positive: ENT inspection nml, No signs of dehydration Neck: positive: Thyroid nml, No JVD, Trachea midline Respiratory: positive: No respiratory distress, Breath sounds nml Cardiovascular: positive: Regular rate & rhythm, No murmur, No gallop Peripheral Pulses: positive: 2+ Abdomen: positive: Non-tender, No organomegaly, Nml bowel sounds, No distention Rectal: positive: Stool - heme NEG Skin: positive: Warm, Skin rash (generalized with no eruptions and ) Neurologic/Psychiatric: positive: Oriented x3, CN's nml (2-12), Motor nml, Sensation nml, Mood/affect nml - LABS Result Diagrams: 10/28/16 07:40 10/28/16 06:30 Other Lab Results: Abnormal Lab Results 10/27/16 10/27/16 10/27/16 05:16 05:16 05:16 RBC 2.62 10^6/uL L 10^6/uL (4.20-5.40) Hgb 8.9 g/dL L g/dL (12.0-16.0) Hct 26.6 % L % (37.0-47.0) MCV 101.8 fL H fL (81.0-99.0) MCH 34.2 pg H pg (27.0-31.0) Neut # 7.3 10^3/uL H 10^3/uL (1.5-6.6) Estimated GFR (MDRD) 83 L (>89) Glucose 110 mg/dL H mg/dL (70-100) HDL Cholesterol 47 mg/dL L mg/dL (60 - ) 10/28/16 10/28/16 06:30 07:40 RBC 2.62 10^6/uL L 10^6/uL (4.20-5.40) Hgb 9.1 g/dL L g/dL (12.0-16.0) Hct 26.4 % L % (37.0-47.0) MCV 100.7 fL H fL (81.0-99.0) MCH 34.6 pg H pg (27.0-31.0) Neut # Estimated GFR (MDRD) 83 L (>89) Glucose 103 mg/dL H mg/dL (70-100) HDL Cholesterol - FOLLOW UP Follow Up: Patient was instructed to see clinical exercise specialist in Autoimmune illness along with Dermatology within the first week or discharge. She will call to make an appointment. Patient verbally understood all instructions given by nursing and hospital medicine team. vital signs were stable at time of discharge"
[2016-10-28] MEDS: ZINC SULFATE 220 MG CAPSULE PO SCH (08:36)
[2016-10-28] MEDS: POLYETHYLENE GLYCOL 3350 17 GM PACKET PO SCH (08:36)
[2016-10-28] MEDS: SACCHAROMYCES BOULARDII 250 MG CAPSULE PO SCH (08:36)
[2016-10-28] MEDS: CHOLECALCIFEROL 5,000 UNIT CAPSULE PO SCH (08:36)
[2016-10-28] MEDS ORDERED: MAGNESIUM OXIDE 400 MG TABLET PO SCH (09:00)
[2016-10-28 09:05] LABS: THYROID STIMULATING HORMONE 1.39 uIU/mL (0.34-5.60)
[2016-10-28] MEDS: CALCIUM CARBONATE CHEW 500 MG TABLET PO PRN (11:45)
[2016-10-28] MEDS ORDERED: MULTIVITAMIN 10 ML, FOLIC ACID INJ 1 MG, THIAMINE INJ 100 MG, MAGNESIUM SULFATE 2 GM in... IV SCH ×5 (12:00)
[2016-10-28 12:13] VITALS: BP 121/75
[2016-10-28] MEDS ORDERED: SACCHAROMYCES BOULARDII 250 MG CAPSULE PO SCH (17:00)
[2016-10-30 13:06] LABS: ANA SCREEN NEGATIVE (NEGATIVE)
== END 2016-10-28 13:10 | disposition home or self-care (01) | DRG 194 ==
LOC: ED 19:59 → MS 22:44
PROVIDERS: ADMIT Specialist; ATTEND Nurse Practitioner
DX: J18.1 Lobar pneumonia, unspecified organism (principal); J14 Pneumonia due to Hemophilus influenzae; K91.2 Postsurgical malabsorption, not elsewhere classified; R21 Rash and other nonspecific skin eruption; D53.9 Nutritional anemia, unspecified; D50.9 Iron deficiency anemia, unspecified; Y83.2 Surgical operation with anastomosis, bypass or graft as the cause of abnormal reaction of the patient, or of later complication, without mention of misadventure at the time of the procedure; T37.1X5A Adverse effect of antimycobacterial drugs, initial encounter; M54.42 Lumbago with sciatica, left side; M54.41 Lumbago with sciatica, right side; G89.29 Other chronic pain; E66.9 Obesity, unspecified; D51.8 Other vitamin B12 deficiency anemias; M40.209 Unspecified kyphosis, site unspecified; M81.0 Age-related osteoporosis without current pathological fracture; G47.33 Obstructive sleep apnea (adult) (pediatric); R09.02 Hypoxemia; Z68.32 Body mass index [BMI] 32.0-32.9, adult; Z87.891 Personal history of nicotine dependence; Z98.84 Bariatric surgery status
CPT/HCPCS: 36415; 71020; 80048; 80061; 82247; 82248; 82306; 82607; 82728; 82746; 82955; 83010; 83540; 83605; 83615; 83735; 84425; 84439; 84443; 84466; 84481; 84484; 84630; 85025; 85044; 86038; 87040; 87070; 87077; 87205; 93005; 94640; 94761; 96374; 99284

== ENCOUNTER 2021-02-28 16:42 | Emergency (ER) | payer MEDICARE, OTHER ==
[2021-02-28 17:04] VITALS: BP 181/76
--- NOTE | 2021-02-28 17:22 | XRAY Report ---
PROCEDURE: Hand 3 View RT INDICATIONS: Trauma TECHNIQUE: 3 views of the hand(s) acquired. COMPARISON: None FINDINGS: Bones: No fractures or dislocations. No suspicious bony lesions. Osteopenia joint space narrowing noted involving the fourth and fifth distal interphalangeal joint and first metacarpophalangeal joint Soft tissues: No suspicious soft tissue calcifications. IMPRESSION: Degenerative changes without fracture or foreign body Reviewed by: Tarik Daigle MD on 02/28/2021 4:21 PM AKST Approved by: Tarik Daigle MD on 02/28/2021 4:21 PM AKST Station ID: [id number]
--- NOTE | 2021-02-28 17:42 | ED Physician Documentation ---
PD HPI UPPER EXT INJURY - Stated complaint Stated Complaint: FALL - Chief complaint Chief Complaint: Ext Problem - Additonal information Additional information: Emergency department for chief complaint of right wrist pain and numbness and tingling in her first through third digits after a fall 2 weeks ago. Patient states she was walking on concrete when she tripped and fell, catching herself on both hands. She states that she forcefully extended her wrist, good that following the injury, she had some bruising on her palm. Patient states that the pain is not gone away and that it keeps her up, along with the tingling, at night. No other complaints at this time. She was not injured in any other way. Review of Systems Ten Systems: 10 systems reviewed and negative Constitutional: reports: Reviewed and negative Eyes: reports: Reviewed and negative Ears: reports: Reviewed and negative Nose: reports: Reviewed and negative Throat: reports: Reviewed and negative Cardiac: reports: Reviewed and negative Respiratory: reports: Reviewed and negative GI: reports: Reviewed and negative : reports: Reviewed and negative Skin: reports: Reviewed and negative Musculoskeletal: reports: Extremity pain, Joint pain Neurologic: reports: Numbness Psychiatric: reports: Reviewed and negative Endocrine: reports: Reviewed and negative Immunocompromised: reports: Reviewed and negative PD PAST MEDICAL HISTORY - Past Medical History Cardiovascular: None Respiratory: CPAP use Endocrine/Autoimmune: None GI: None ATOMIC PROCESS ENGINEER: None : None HEENT: None Psych: None Musculoskeletal: None Derm: None - Past Surgical History Past Surgical History: Yes General: Appendectomy Ortho: Other /ATOMIC PROCESS ENGINEER: section HEENT: Tonsil/Adenoidectomy - Present Medications Home Medications: Ambulatory Orders Medication Instructions Recorded Confirmed Ferrous Sulfate [Iron Supplement] 325 mg PO Q7D 10/17/15 10/26/16 Calcium Carbonate [Tums (Calcium 500 mg PO DAILY 10/26/16 10/26/16 Carbonate 500mg)] Cyanocobalamin (Vitamin B-12) 250 mcg PO DAILY 10/26/16 10/26/16 [Vitamin B-12 (500 mcg sublingual)] Pnv No.95/Ferrous Fum/Folic AC 1 each PO DAILY 10/26/16 10/26/16 [ Tablet] Benzonatate [Tessalon] 100 mg PO TID PRN #60 capsule 10/28/16 Calcium Carbonate [Tums (Calcium 500 mg PO PRN PRN #30 tablet 10/28/16 Carbonate 500mg)] Cholecalciferol [Vitamin D3] 5,000 unit PO BID #60 capsule 10/28/16 Magnesium Oxide [Mag Ox] 400 mg PO DAILYWM #30 tablet 10/28/16 [employer] Acid Ethyl Esters [Lovaza] 1 gm PO BID #60 capsule 10/28/16 HYDROcod/ACETAM 5/325 [[place] 5/325] 1 - 2 tablet PO Q6H PRN #10 tablet 02/28/21 - Allergies Allergies/Adverse Reactions: Allergies Allergy/AdvReac Type Severity Reaction Status Date / Time No Known Drug Allergies Allergy Verified 02/28/21 17:04 - Social History Does the pt smoke?: No Smoking Status: Never smoker Does the pt drink ETOH?: No Does the pt have substance abuse?: No - Immunizations Immunizations are current?: Yes - POLST Patient has POLST: No PD ED PE NORMAL - Vitals Vital signs reviewed: Yes - General General: Alert and oriented X 3, No acute distress, Well developed/nourished - HEENT HEENT: Atraumatic, PERRL, EOMI, Moist mucous membranes - Neck Neck: Supple, no meningeal sign - Cardiac Cardiac: Strong equal pulses - Respiratory Respiratory: No respiratory distress. No: Other - Derm Derm: Normal color, Warm and dry, No rash, Other (Faint contusion right palm.) - Extremities Extremities: No deformity, No edema, Other (Tenderness palpation over right palm; no edema. No deformity. Mildly decreased range of motion right wrist secondary to pain in hand.) - Neuro Neuro: Alert and oriented X 3, historian research assistant 2-12 intact, Normal speech - Psych Psych: Normal mood, Normal affect Results - Vitals Vitals: Vital Signs - 24 hr 02/28/21 16:59 Temperature 36.3 C L Heart Rate 75 Respiratory 16 Rate Blood Pressure 181/76 H O2 Saturation 97 Oxygen O2 Source Room air - Rads (name of study) R hand XR Radiology: Final report received, EMP read indepedently, See rad report (neg) PD MEDICAL DECISION MAKING - ED course Complexity details: reviewed results, re-evaluated patient, considered differe ntial, d/w patient ED course: Patient was worked up with an x-ray of her hand, which was negative. I discussed with her that she most likely sprained her wrist, and the resultant inflammation has caused some the numbness and tingling she is having. We discussed home management of symptoms, including ice, ibuprofen, and hydrocodone for breakthrough pain. I have placed the patient in a Velcro wrist splint. Departure - Departure Disposition: 01 Home, Self Care Clinical Impression: Paresthesia Right wrist sprain Qualifiers: Encounter type: initial encounter Qualified Code(s): S63.501A - Unspecified s prain of right wrist, initial encounter Condition: Stable Instructions: ED Sprain Wrist Prescriptions: HYDROcod/ACETAM 5/325 [[place] 5/325] 1 - 2 tablet PO Q6H PRN #10 tablet PRN Reason: Pain Comments: Your prescription has been electronically transmitted to [facility] in [place].
== END 2021-02-28 18:08 | disposition home or self-care (01) ==
LOC: ED 16:42
DX: S63.501A Unspecified sprain of right wrist, initial encounter (principal); W19.XXXA Unspecified fall, initial encounter
CPT/HCPCS: 99283

== ENCOUNTER 2021-03-22 10:35 | Outpatient (CLI) | payer MEDICARE, OTHER ==
--- NOTE | 2021-03-23 11:46 | Mammography Report ---
BILATERAL DIGITAL SCREENING MAMMOGRAM 3D/2D: 03/22/2021 CLINICAL: Routine screening. Comparison is made to exams dated: 12/27/2015 mammogram - [facility], 11/27/2011 [facility], and 08/08/2010 mammogram - [facility]. The tissue of both breasts is predominantly f atty. No significant masses, calcifications, or other findings are seen in either breast. There has been no significant interval change. IMPRESSION: NEGATIVE There is no mammographic evidence of malignancy. A 1 year screening mammogram is recommended. This exam was interpreted at Station ID: [id number]. NOTE: For mammograms, a report in lay terms will be sent to the patient. Approximately 15% of breast malignancies will not be visualized mammographically. In the management of a palpable breast mass, a negative mammogram must not discourage biopsy of a clinically suspicious lesion. Electronically Signed By: Augustine Minor M.D. aty/penrad:03/22/2021 12:39:57 ACR BI-RADS Category 1: Negative 3341F PARENCHYMAL PATTERN: (F) - The breast(s) demonstrate(s) diffuse fatty replacement. BI-RADS CATEGORY: (1) - 1 RECOMMENDATION: (ANNUAL) - Recommend routine annual screening mammography. [id number] 1 year screening LATERALITY: (B)
== END 2021-03-22 10:36 | disposition home or self-care (01) ==
LOC: DI.N 10:35
DX: Z12.31 Encounter for screening mammogram for malignant neoplasm of breast (principal)

== ENCOUNTER 2022-08-18 12:44 | Outpatient (CLI) | payer MEDICARE, OTHER ==
--- NOTE | 2022-08-18 14:09 | DEXA Report ---
PROCEDURE: Dexa Spine and/or Hip INDICATIONS: POST MENOPAUSAL TECHNIQUE: Dual energy x-ray absorptiometry (DXA) was performed on a [employer] System. Regions measur ed are the AP Spine, femoral neck, and if needed forearm. COMPARISON: None. FINDINGS: Lumbar Spine: Bone Mineral Density 1.227 g/cm/cm,T score 0.4, normal Left Femoral Neck: Bone Mineral Density 0.642 g/cm/cm, T score -2.8, osteoporosis Left Hip: Bone Mineral Density 0.777 g/cm/cm,T score -1.8, moderate osteopenia (T score greater or equal to -1.0: NORMAL) (T score from -1.1 to -2.4: OSTEOPENIA) (T score less than or equal to -2.5 to: OSTEOPOROSIS) Impression: Osteoporosis in the left femoral neck with moderate osteopenia in the left hip. Patients with diagnosis of osteoporosis or osteopenia should have regular bone mineral density assess ment. For those eligible for Medicare, routine testing is allowed once every 2 years. Testing frequ ency can be increased for patients who have rapidly progressing disease or for those who are receivin g medical therapy to restore bone mass. Reviewed by: Lurdes Neff MD on 08/18/2022 2:07 PM PDT Approved by: Lurdes Neff MD on 08/18/2022 2:07 PM PDT Station ID: [id number]
== END 2022-08-18 12:45 | disposition home or self-care (01) ==
LOC: DI 12:44
PROVIDERS: ATTEND Student in an Organized Health Care Education/Training Program
DX: M81.0 Age-related osteoporosis without current pathological fracture (principal)

== ENCOUNTER 2022-08-18 12:44 | Outpatient (CLI) | payer MEDICARE, OTHER ==
--- NOTE | 2022-08-21 09:15 | Mammography Report ---
BILATERAL DIGITAL SCREENING MAMMOGRAM 3D/2D: 08/18/2022 CLINICAL: Routine screening. Comparison is made to exams dated: 03/22/2021 mammogram and 12/27/2015 mammogram - [facility]. Both breasts are almost entirely fatty (category a/<25% glandular tissue). No significant masses, calcifications, or other findings are seen in either breast. There has been no significant interval change. IMPRESSION: NEGATIVE There is no mammographic evidence of malignancy. A 1 year screening mammogram is recommended. Based on the Tyrer Cuzick model (a risk assessment model) the patients lifetime risk is 2.5% and her 10 year risk is 2.5%. According to the ACR, ACS, and NCCN guidelines, an annual breast MRI exam radha g with mammogram is recommended if the patients lifetime risk is 20% or greater. This exam was interpreted at Station ID: [id number]. NOTE: For mammograms, a report in lay terms will be sent to the patient. Approximately 15% of breast malignancies will not be visualized mammographically. In the management of a palpable breast mass, a negative mammogram must not discourage biopsy of a clinically suspicious lesion. Electronically Signed By: Amrik Virk M.D. acr/penrad:08/18/2022 13:32:25 letter sent: No_Letter ACR BI-RADS Category 1: Negative 3341F PARENCHYMAL PATTERN: (F) - The breast(s) demonstrate(s) diffuse fatty replacement. BI-RADS CATEGORY: (1) - 1 Mammogram [id number] 1 year screening LATERALITY: (B)
== END 2022-08-18 12:45 | disposition home or self-care (01) ==
LOC: DI 12:44
PROVIDERS: ATTEND Student in an Organized Health Care Education/Training Program
DX: Z12.31 Encounter for screening mammogram for malignant neoplasm of breast (principal)